=== PATIENT | female | born 1955 | race Caucasian/White ===

== ENCOUNTER 2021-07-04 06:43 | Inpatient (IN) | payer OTHER, MEDICAID ==
[2021-07-02 12:20] LABS: CLARITY,URINE SLIGHTLY CLOUDY (Clear); COLOR,URINE YELLOW (Yellow); GLUCOSE, URINE NEGATIVE (Neg); KETONES,URINE NEGATIVE (Neg); LEUKOCYTE ESTERASE ,URINE NEGATIVE (Neg); NITRITES, URINE NEGATIVE (Neg); OCCULT BLOOD,URINE NEGATIVE (Neg); PROTEIN,URINE NEGATIVE (Neg); UROBILINOGEN,URINE 0.2 E.U/dL (0.2-1.0)
[2021-07-02 12:25] LABS: UA COLLECTION TYPE CLN CATCH MIDSTREAM
[2021-07-02 12:26] LABS: MUCUS STRANDS MANY /LPF (Neg); SQUAMOUS EPITHELIAL CELL,UR FEW /LPF (FEW); TRANSITIONAL EPI CELLS,URINE FEW /HPF
[2021-07-02 12:27] LABS: BACTERIA,URINE NONE SEEN /HPF (Neg); WBC,URINE 0-4 /HPF (0-4)
[2021-07-02 12:28] LABS: BASOPHILS % (AUTO) 0.4 % (0-1); EOSINOPHILS % (AUTO) 0.3 % (0-6); LYMPHOCYTES # (AUTO) 0.8 X10'3 (1.1-4.8); LYMPHOCYTES % (AUTO) 9.1 % (21-51); MEAN CORPUSCULAR HEMOGLOBIN 29.3 PG (27.0-31.0); MEAN CORPUSCULAR HGB CONC 33.4 g/dL (33.0-36.5); MEAN CORPUSCULAR VOLUME 87.7 FL (78-98); MEAN PLATELET VOLUME 8.1 FL (7.4-10.4); MONOCYTES # (AUTO) 0.5 X10'3 (0-0.9); MONOCYTES % (AUTO) 6.2 % (2-12); NEUTROPHILS # (AUTO) 7.1 X10'3 (1.8-7.7); PRE OP HEMATOCRIT 38.3 % (35.0-45.0); PRE OP HEMOGLOBIN 12.8 g/dL (12.0-16.0); PRE OP PLATELET COUNT 335 X10'3 (140-440); RED BLOOD COUNT 4.37 X10'6 (4.20-5.60); RED CELL DISTRIBUTION WIDTH 13.3 % (11.5-14.5)
[2021-07-02 12:35] LABS: PRE OP INR 1.1 INR; PRE OP PROTIME 11.1 SECONDS (9.0-12.0)
[2021-07-02 12:36] LABS: ALBUMIN 3.6 G/DL (3.4-5.0); ALBUMIN/GLOBULIN RATIO 0.8 (1.1-1.5); ALKALINE PHOSPHATASE 114 IU/L (46-116); BLOOD UREA NITROGEN 2 MG/DL (7-18); BUN/CREATININE RATIO 3.6 (6.6-38.0); CALCIUM 9.6 MG/DL (8.5-10.1); CHLORIDE 104 MMOL/L (99-107); CREATININE 0.55 MG/DL (0.40-0.90); PRE OP ALT 18 U/L (30-65); PRE OP ANION GAP 7 (8-16); PRE OP AST 15 U/L (10-37); PRE OP BILIRUB, TOTAL 0.3 MG/DL (0.0-1.0); PRE OP GLUCOSE 117 MG/DL (70-104); PRE OP POTASSIUM 3.9 MMOL/L (3.4-5.1); PRE OP SODIUM 140 MMOL/L (135-145); TOTAL CARBON DIOXIDE 28.6 MMOL/L (24-32); eGFR > 90 ML/MIN
[2021-07-03 10:17] LABS: ABG BASE EXCESS 1.1 mmol/L (-2.0-2.0); ABG HCO3 24.1 mmol/L (22.0-26.0); ABG OXYGEN SATURATION 97.1 % (94-97); ABG PO2 (T) 86.3 mmHg (75.0-100.0); ALLEN'S TEST POSITIVE; FCOHb 5.3 % (0.0-3.9); FMetHb 0.3 % (0.0-1.5); FO2Hb 91.7 % (94-97); TOTAL HEMOGLOBIN 12.4 G/dl (12.0-16.0)
[~2021-07-04] VITALS: Ht 157.5 cm; Wt 52.6 kg
[2021-07-04] VITALS (18 sets, daily range): BP systolic 109–134; BP diastolic 54–74
[~2021-07-04 06:43] MED LIST: BUDE10.2 INH; GABA300C PO; PANT20TA18 PO; SIMV-42 PO; albuterol 2.5 MG/3 ML nebule NEB ONE; cefazolin/dext.iso 2gm/50ml IV ONE; famotidine 20mg tablet PO ONE; ringers solution, lacted 1,000 ML IV SCH
[2021-07-04] MEDS ORDERED: proCHLORperazine 10 MG/2 ml inj IV PRN (07:35)
[2021-07-04] MEDS ORDERED: morphine 4 MG/ML inj SYRINge IV PRN ×2 (07:35→14:40)
[2021-07-04] MEDS ORDERED: morphine 2 MG/ML inj. syringe IV PRN (07:35)
[2021-07-04] MEDS ORDERED: ringers solution, lacted 1,000 ML IV SCH (07:35)
[2021-07-04] MEDS ORDERED: meperidine/PF 25mg/ml syringe IV PRN ×2 (07:35)
[2021-07-04] MEDS ORDERED: ondansetron/PF 4mg/2ml inj IV PRN ×2 (07:35→14:40)
[2021-07-04 08:24] LABS: CLARITY,URINE CLEAR (Clear); GLUCOSE, URINE NEGATIVE (Neg); KETONES,URINE NEGATIVE (Neg); LEUKOCYTE ESTERASE ,URINE NEGATIVE (Neg); NITRITES, URINE NEGATIVE (Neg); OCCULT BLOOD,URINE TRACE-INTACT (Neg); PH,URINE 7.5 (4.8-8.0); PROTEIN,URINE NEGATIVE (Neg); UROBILINOGEN,URINE 0.2 E.U/dL (0.2-1.0)
[2021-07-04 08:26] LABS: COLOR,URINE STRAW (Yellow); UA COLLECTION TYPE CLN CATCH MIDSTREAM
[2021-07-04 08:27] LABS: BACTERIA,URINE FEW /HPF (Neg); RBC,URINE 0-2 /HPF (0-2); SQUAMOUS EPITHELIAL CELL,UR FEW /LPF (FEW); WBC,URINE 0-4 /HPF (0-4)
[2021-07-04] MEDS ORDERED: LIDOcaine 1% (10mg/ml) 2ml vial ONE (09:33)
[2021-07-04] MEDS ORDERED: neostigmine methylsulfate 1 MG/ML 10ml vial ONE (10:05)
[2021-07-04] MEDS ORDERED: sevoflurane 250ml liquid IH ONE (10:05)
[2021-07-04] MEDS ORDERED: glycopyrrolate 0.2mg/ml inj ONE (10:05)
[2021-07-04] MEDS ORDERED: MIDAZolam 1 MG/ML 5ML VIAL ONE (10:18)
[2021-07-04] MEDS ORDERED: fentaNYL /PF 50mcg/ml 5ml ampule ONE (10:18)
[2021-07-04] MEDS ORDERED: BUPIVAcaine/PF 2.5 mg/ml (0.25%) 30ml vial ONE (10:56)
[2021-07-04] MEDS ORDERED: CISatracurium **Bolus** 2 mg/ml inj IV ONE (10:57)
[2021-07-04] MEDS ORDERED: propofol inj 20 ML IV ONE (11:10)
[2021-07-04] MEDS ORDERED: rocuronium 10mg/ml inj IV ONE (11:10)
[2021-07-04] MEDS ORDERED: LIDOcaine 2% (20mg/ml) 5ml vial ONE (11:12)
[2021-07-04] MEDS ORDERED: ondansetron/PF 4mg/2ml inj ONE (13:03)
[2021-07-04] MEDS ORDERED: dexamethasone sod phosphate 4mg/ml inj. ONE (13:03)
[2021-07-04] MEDS ORDERED: fentaNYL/PF 50MCG/1 ML 2ML syringe ONE (13:40)
--- NOTE | 2021-07-04 14:08 | NUR ---
Received from OR via , accompanied by Anesthesiologist DR YEPEZ and report given by Anesthesiolgist. PT PRESENTS WITH 20G LEFT HAND, ART LINE RIGHT WRIST, TINSLEY CATHETER, CHST TUBE, VSS. Addendum: 07/04/21 at 1445 by Cindy Martin RN, RN Amended: Links added.
[2021-07-04] MEDS: meperidine/PF 25mg/ml syringe IV PRN ×2 (14:31→14:50)
[2021-07-04 14:32] LABS: ABG BASE EXCESS -2.7 mmol/L (-2.0-2.0); ABG HCO3 21.3 mmol/L (22.0-26.0); ABG OXYGEN SATURATION 99.1 % (94-97); ABG PCO2 (T) 34.2 mmHg (32.0-45.0); ABG PO2 (T) 277.9 mmHg (75.0-100.0); FCOHb 0.1 % (0.0-3.9); FMetHb 0.1 % (0.0-1.5); FO2Hb 98.9 % (94-97); TOTAL HEMOGLOBIN 9.8 G/dl (12.0-16.0)
[2021-07-04] MEDS ORDERED: CADD PCA waste documentation MC PRN (14:40)
[2021-07-04] MEDS ORDERED: HYDROcodone/acetaminophen 10/325mg tab PO PRN (14:40)
[2021-07-04] MEDS ORDERED: naloxone 0.4 mg/ml inj IV PRN (14:40)
[2021-07-04] MEDS ORDERED: metoclopramide 5 mg/ml inj IV PRN (14:40)
[2021-07-04] MEDS ORDERED: albuterol 2.5 MG/3 ML nebule NEB PRN (14:40)
[2021-07-04] MEDS ORDERED: NORMAL SALINE IV PRN (15:00)
[2021-07-04] MEDS ORDERED: NALOXONE IV PRN (15:00)
[2021-07-04 15:06] LABS: BASOPHILS % (AUTO) 0.3 % (0-1); EOSINOPHILS % (AUTO) 0.1 % (0-6); HEMATOCRIT 26.6 % (35.0-45.0); HEMOGLOBIN 8.8 g/dl (12.0-16.0); LYMPHOCYTES # (AUTO) 0.5 X10'3 (1.1-4.8); LYMPHOCYTES % (AUTO) 3.7 % (21-51); MEAN CORPUSCULAR HEMOGLOBIN 28.7 PG (27.0-31.0); MEAN CORPUSCULAR HGB CONC 33.1 g/dL (33.0-36.5); MEAN CORPUSCULAR VOLUME 86.7 FL (78-98); MEAN PLATELET VOLUME 8.1 FL (7.4-10.4); MONOCYTES # (AUTO) 0.8 X10'3 (0-0.9); MONOCYTES % (AUTO) 6.1 % (2-12); NEUTROPHILS # (AUTO) 11.8 X10'3 (1.8-7.7); NEUTROPHILS % (AUTO) 89.8 % (42-75); PLATELET COUNT 252 X10'3 (140-440); RED BLOOD COUNT 3.07 X10'6 (4.20-5.60); RED CELL DISTRIBUTION WIDTH 12.9 % (11.5-14.5); WHITE BLOOD COUNT 13.1 X10'3 (4.5-11.0)
[2021-07-04] MEDS ORDERED: MORPHINE EPI ONE ×2 (15:15)
[2021-07-04] MEDS ORDERED: BUPIVACAINE EPI ONE ×2 (15:15)
[2021-07-04] MEDS ORDERED: [UNRECOGNIZED DRUG - OTHER] EPI ONE (15:15)
[2021-07-04] MEDS ORDERED: [UNRECOGNIZED DRUG - OTHER] EPI ONE (15:15)
[2021-07-04 15:38] LABS: ALANINE AMINOTRANSFERASE 15 U/L (12-78); ALBUMIN 2.9 G/DL (3.4-5.0); ALBUMIN/GLOBULIN RATIO 1.2 (1.1-1.5); ALKALINE PHOSPHATASE 66 IU/L (46-116); ANION GAP 8 (8-16); ASPARTATE AMINO TRANSFERASE 17 U/L (10-37); BILIRUBIN,TOTAL 0.3 MG/DL (0.1-1.0); BLOOD UREA NITROGEN 5 MG/DL (7-18); BUN/CREATININE RATIO 11.6 (6.6-38.0); CALCIUM 8.3 MG/DL (8.5-10.1); CHLORIDE 108 MMOL/L (99-107); CREATININE 0.43 MG/DL (0.40-0.90); GLUCOSE 124 MG/DL (70-104); POTASSIUM 3.6 MMOL/L (3.5-5.1); SODIUM 140 MMOL/L (135-145); TOTAL CARBON DIOXIDE 24.4 MMOL/L (24-32); TOTAL PROTEIN 5.4 G/DL (6.4-8.2); eGFR > 90 ML/MIN
--- NOTE | 2021-07-04 15:48 | NUR ---
Report called to receiving nurse VENTURA LAINEZ. Transferred via [facility]OSPITAL BED WITH MONITOR, 2 PT BAGS TO ROOM 2010. Belongings Special Issues communicated to receiving nurse. Addendum: 07/04/21 at 1613 by Cindy Martin RN, RN Amended: Links added.
[2021-07-04] MEDS: acetaminophen 1,000mg/100ml IV 100 ML IV SCH ×2 (16:04→16:08)
[2021-07-04] MEDS ORDERED: acetaminophen 1,000mg/100ml IV 100 ML IV ONE (16:10)
--- NOTE | 2021-07-04 18:23 | NUR ---
Problems reprioritized. Patient report given, questions answered & plan of care reviewed with IVÁN LAINEZ.
[2021-07-04] MEDS: ceFAZolin inj. 1,000 MG in dextrose 5%-water 50ml 50 ML IV SCH (18:35)
[2021-07-04] MEDS: potassium Cl 20mEq in D5-NS 1,000 ML IV SCH (18:35)
--- NOTE | 2021-07-04 18:45 | NUR ---
pt check with charge nurse Rachell,, coccyx and bottom in great condition. Incision line with mild swelling laterally, and minimal crepitus. 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 Pt is able to move both legs and feet and denies any sensation deficit. Pt was able to talk to her daughter on the phone.
[2021-07-05] VITALS (24 sets, daily range): BP systolic 83–139; BP diastolic 42–74
[2021-07-05] MEDS: gabapentin 300mg capsule PO SCH ×3 (00:37→19:18)
[2021-07-05] MEDS: docusate sod 100mg capsule PO SCH ×3 (00:37→19:18)
[2021-07-05] MEDS: ceFAZolin inj. 1,000 MG in dextrose 5%-water 50ml 50 ML IV SCH (00:40)
[2021-07-05] MEDS: acetaminophen 1,000mg/100ml IV 100 ML IV SCH ×6 (02:00→14:00)
[2021-07-05 02:58] LABS: BASOPHILS % (AUTO) 0.2 % (0-1); EOSINOPHILS % (AUTO) 0 % (0-6); HEMATOCRIT 27.9 % (35.0-45.0); HEMOGLOBIN 9.4 g/dl (12.0-16.0); LYMPHOCYTES # (AUTO) 0.6 X10'3 (1.1-4.8); LYMPHOCYTES % (AUTO) 5.2 % (21-51); MEAN CORPUSCULAR HEMOGLOBIN 29.3 PG (27.0-31.0); MEAN CORPUSCULAR HGB CONC 33.9 g/dL (33.0-36.5); MEAN CORPUSCULAR VOLUME 86.6 FL (78-98); MONOCYTES # (AUTO) 1.1 X10'3 (0-0.9); MONOCYTES % (AUTO) 9.5 % (2-12); NEUTROPHILS # (AUTO) 9.9 X10'3 (1.8-7.7); NEUTROPHILS % (AUTO) 85.1 % (42-75); PLATELET COUNT 263 X10'3 (140-440); RED BLOOD COUNT 3.22 X10'6 (4.20-5.60); WHITE BLOOD COUNT 11.7 X10'3 (4.5-11.0)
[2021-07-05 03:20] LABS: ALANINE AMINOTRANSFERASE 18 U/L (12-78); ALBUMIN 2.9 G/DL (3.4-5.0); ALKALINE PHOSPHATASE 67 IU/L (46-116); ANION GAP 8 (8-16); ASPARTATE AMINO TRANSFERASE 21 U/L (10-37); BILIRUBIN,TOTAL 0.3 MG/DL (0.1-1.0); BLOOD UREA NITROGEN 2 MG/DL (7-18); BUN/CREATININE RATIO 4.1 (6.6-38.0); CALCIUM 8.4 MG/DL (8.5-10.1); CHLORIDE 105 MMOL/L (99-107); CREATININE 0.49 MG/DL (0.40-0.90); GLUCOSE 138 MG/DL (70-104); MAGNESIUM 1.5 MG/DL (1.5-2.4); POTASSIUM 4.1 MMOL/L (3.5-5.1); SODIUM 137 MMOL/L (135-145); TOTAL CARBON DIOXIDE 24.2 MMOL/L (24-32); TOTAL PROTEIN 5.8 G/DL (6.4-8.2); eGFR > 90 ML/MIN
[2021-07-05] MEDS ORDERED: BUPIVACAINE EPI ONE (04:30)
[2021-07-05] MEDS ORDERED: MORPHINE EPI ONE (04:30)
[2021-07-05] MEDS ORDERED: [UNRECOGNIZED DRUG - OTHER] EPI ONE (04:30)
[2021-07-05] MEDS: potassium Cl 20mEq in D5-NS 1,000 ML IV SCH (07:31)
[2021-07-05] MEDS ORDERED: albumin (Human) 5% 250ml 250 ML IV ONE (11:05)
[2021-07-05] MEDS ORDERED: morphine 2 MG/ML inj. syringe IV PRN (13:45)
[2021-07-05] MEDS ORDERED: ondansetron/PF 4mg/2ml inj IV PRN (13:45)
[2021-07-05] MEDS ORDERED: proCHLORperazine 10 MG/2 ml inj IV PRN (13:45)
[2021-07-05] MEDS ORDERED: meperidine/PF 25mg/ml syringe IV PRN ×2 (13:45)
[2021-07-05] MEDS ORDERED: morphine 4 MG/ML inj SYRINge IV PRN (13:45)
[2021-07-05] MEDS: morphine 2 MG/ML inj. syringe IV PRN (19:16)
[2021-07-05] MEDS ORDERED: BUPIVACAINE EPI SCH (21:00)
[2021-07-05] MEDS ORDERED: MORPHINE EPI SCH (21:00)
[2021-07-05] MEDS ORDERED: [UNRECOGNIZED DRUG - OTHER] EPI SCH (21:00)
[2021-07-06] VITALS (24 sets, daily range): BP systolic 97–135; BP diastolic 39–73
[2021-07-06] MEDS: potassium Cl 20mEq in D5-NS 1,000 ML IV SCH (00:52)
[2021-07-06 03:36] LABS: BASOPHILS % (AUTO) 0.4 % (0-1); EOSINOPHILS # (AUTO) 0.2 X10'3 (0-0.9); EOSINOPHILS % (AUTO) 2.4 % (0-6); HEMATOCRIT 28.2 % (35.0-45.0); HEMOGLOBIN 9.6 g/dl (12.0-16.0); LYMPHOCYTES # (AUTO) 0.7 X10'3 (1.1-4.8); LYMPHOCYTES % (AUTO) 6.8 % (21-51); MEAN CORPUSCULAR HEMOGLOBIN 29.8 PG (27.0-31.0); MEAN CORPUSCULAR VOLUME 87.8 FL (78-98); MEAN PLATELET VOLUME 8.2 FL (7.4-10.4); MONOCYTES # (AUTO) 1.1 X10'3 (0-0.9); MONOCYTES % (AUTO) 10.6 % (2-12); NEUTROPHILS # (AUTO) 8.2 X10'3 (1.8-7.7); NEUTROPHILS % (AUTO) 79.8 % (42-75); PLATELET COUNT 228 X10'3 (140-440); RED BLOOD COUNT 3.21 X10'6 (4.20-5.60); RED CELL DISTRIBUTION WIDTH 13.5 % (11.5-14.5); WHITE BLOOD COUNT 10.2 X10'3 (4.5-11.0)
[2021-07-06 04:19] LABS: ALANINE AMINOTRANSFERASE 16 U/L (12-78); ALBUMIN 2.8 G/DL (3.4-5.0); ALKALINE PHOSPHATASE 67 IU/L (46-116); ANION GAP 6 (8-16); ASPARTATE AMINO TRANSFERASE 17 U/L (10-37); BILIRUBIN,TOTAL 0.3 MG/DL (0.1-1.0); BLOOD UREA NITROGEN 7 MG/DL (7-18); BUN/CREATININE RATIO 16.3 (6.6-38.0); CALCIUM 8.1 MG/DL (8.5-10.1); CHLORIDE 102 MMOL/L (99-107); CREATININE 0.43 MG/DL (0.40-0.90); GLUCOSE 97 MG/DL (70-104); MAGNESIUM 1.5 MG/DL (1.5-2.4); POTASSIUM 3.6 MMOL/L (3.5-5.1); SODIUM 135 MMOL/L (135-145); TOTAL CARBON DIOXIDE 26.6 MMOL/L (24-32); TOTAL PROTEIN 5.7 G/DL (6.4-8.2); eGFR > 90 ML/MIN
[2021-07-06] MEDS: gabapentin 300mg capsule PO SCH (07:36)
[2021-07-06] MEDS: docusate sod 100mg capsule PO SCH ×2 (07:36→20:13)
[2021-07-06] MEDS ORDERED: acetaminophen 325mg tablet PO PRN (15:15)
[2021-07-06] MEDS: morphine/PF injection 8 MG in normal saline 100ml IV soln 92 ML EPI SCH (16:09)
[2021-07-07] VITALS (24 sets, daily range): BP systolic 89–187; BP diastolic 46–100
[2021-07-07 03:06] LABS: BASOPHILS % (AUTO) 0.3 % (0-1); EOSINOPHILS # (AUTO) 0.4 X10'3 (0-0.9); HEMATOCRIT 28.1 % (35.0-45.0); HEMOGLOBIN 9.5 g/dl (12.0-16.0); LYMPHOCYTES # (AUTO) 0.6 X10'3 (1.1-4.8); LYMPHOCYTES % (AUTO) 5.7 % (21-51); MEAN CORPUSCULAR HEMOGLOBIN 29.3 PG (27.0-31.0); MEAN CORPUSCULAR HGB CONC 33.7 g/dL (33.0-36.5); MEAN CORPUSCULAR VOLUME 87.1 FL (78-98); MEAN PLATELET VOLUME 8.2 FL (7.4-10.4); MONOCYTES # (AUTO) 1.2 X10'3 (0-0.9); MONOCYTES % (AUTO) 11.8 % (2-12); NEUTROPHILS # (AUTO) 7.7 X10'3 (1.8-7.7); NEUTROPHILS % (AUTO) 78.2 % (42-75); PLATELET COUNT 236 X10'3 (140-440); RED BLOOD COUNT 3.22 X10'6 (4.20-5.60); RED CELL DISTRIBUTION WIDTH 13.4 % (11.5-14.5); WHITE BLOOD COUNT 9.9 X10'3 (4.5-11.0)
[2021-07-07] MEDS: potassium Cl 20mEq in D5-NS 1,000 ML IV SCH (03:10)
[2021-07-07 03:13] LABS: ALANINE AMINOTRANSFERASE 16 U/L (12-78); ALBUMIN 2.5 G/DL (3.4-5.0); ALBUMIN/GLOBULIN RATIO 0.8 (1.1-1.5); ALKALINE PHOSPHATASE 66 IU/L (46-116); ANION GAP 8 (8-16); ASPARTATE AMINO TRANSFERASE 18 U/L (10-37); BILIRUBIN,TOTAL 0.5 MG/DL (0.1-1.0); BLOOD UREA NITROGEN 4 MG/DL (7-18); BUN/CREATININE RATIO 11.1 (6.6-38.0); CALCIUM 8.5 MG/DL (8.5-10.1); CHLORIDE 101 MMOL/L (99-107); CREATININE 0.36 MG/DL (0.40-0.90); GLUCOSE 102 MG/DL (70-104); MAGNESIUM 1.7 MG/DL (1.5-2.4); POTASSIUM 3.2 MMOL/L (3.5-5.1); SODIUM 137 MMOL/L (135-145); TOTAL CARBON DIOXIDE 28.1 MMOL/L (24-32); TOTAL PROTEIN 5.5 G/DL (6.4-8.2); eGFR > 90 ML/MIN
[2021-07-07] MEDS: docusate sod 100mg capsule PO SCH ×2 (07:22→20:20)
[2021-07-07] MEDS: morphine/PF injection 8 MG in normal saline 100ml IV soln 92 ML EPI SCH (08:25)
--- NOTE | 2021-07-07 09:55 | NUR ---
Pt. ambulating with Physical Therapy.
[2021-07-07] MEDS: morphine 2 MG/ML inj. syringe IV PRN (11:27)
--- NOTE | 2021-07-07 14:13 | NUR ---
Dr. Roberts. (anethesisa) here. Told RN to dc epidural and CVL and insert PIV. Attempts X 2 to insert PIV unsuccesful. Epidrual dc'd with intact cath tip. Band aid applied.
--- NOTE | 2021-07-07 14:39 | NUR ---
Dr. Plaza in to see pt. Stated he will see pt. tomorrow and re-evaluate CT output.
--- NOTE | 2021-07-07 14:47 | NUR ---
Dr. Plaza notified of K+3.2. Stated he would place orders.
[2021-07-07] MEDS: potassium Cl 20 mEq SR tablet PO SCH ×2 (15:42→17:35)
[2021-07-07] MEDS: HYDROcodone/acetaminophen 10/325mg tab PO PRN ×3 (16:17→23:39)
--- NOTE | 2021-07-07 18:15 | NUR ---
Patient in room CICU 2009. I have received report from Vashti LAINEZ and had the opportunity to ask questions and assume patient care.
[2021-07-08] VITALS (19 sets, daily range): BP systolic 89–116; BP diastolic 44–66
[2021-07-08] MEDS: HYDROcodone/acetaminophen 10/325mg tab PO PRN ×4 (05:00→16:01)
[2021-07-08 05:36] LABS: BASOPHILS % (AUTO) 0.4 % (0-1); EOSINOPHILS # (AUTO) 0.5 X10'3 (0-0.9); EOSINOPHILS % (AUTO) 6.6 % (0-6); HEMATOCRIT 27.8 % (35.0-45.0); HEMOGLOBIN 9.3 g/dl (12.0-16.0); LYMPHOCYTES # (AUTO) 0.6 X10'3 (1.1-4.8); LYMPHOCYTES % (AUTO) 7.5 % (21-51); MEAN CORPUSCULAR HEMOGLOBIN 29.1 PG (27.0-31.0); MEAN CORPUSCULAR HGB CONC 33.6 g/dL (33.0-36.5); MEAN CORPUSCULAR VOLUME 86.6 FL (78-98); MEAN PLATELET VOLUME 8.2 FL (7.4-10.4); MONOCYTES # (AUTO) 0.8 X10'3 (0-0.9); MONOCYTES % (AUTO) 10.2 % (2-12); NEUTROPHILS # (AUTO) 6.1 X10'3 (1.8-7.7); NEUTROPHILS % (AUTO) 75.3 % (42-75); PLATELET COUNT 262 X10'3 (140-440); RED BLOOD COUNT 3.21 X10'6 (4.20-5.60); RED CELL DISTRIBUTION WIDTH 13.5 % (11.5-14.5); WHITE BLOOD COUNT 8.1 X10'3 (4.5-11.0)
[2021-07-08 05:50] LABS: ALANINE AMINOTRANSFERASE 19 U/L (12-78); ALBUMIN 2.4 G/DL (3.4-5.0); ALBUMIN/GLOBULIN RATIO 0.7 (1.1-1.5); ALKALINE PHOSPHATASE 82 IU/L (46-116); ANION GAP 6 (8-16); ASPARTATE AMINO TRANSFERASE 7 U/L (10-37); BILIRUBIN,TOTAL 0.5 MG/DL (0.1-1.0); BLOOD UREA NITROGEN 3 MG/DL (7-18); BUN/CREATININE RATIO 7.5 (6.6-38.0); CALCIUM 8.7 MG/DL (8.5-10.1); CHLORIDE 105 MMOL/L (99-107); GLUCOSE 82 MG/DL (70-104); MAGNESIUM 1.9 MG/DL (1.5-2.4); SODIUM 141 MMOL/L (135-145); TOTAL CARBON DIOXIDE 29.7 MMOL/L (24-32); TOTAL PROTEIN 5.9 G/DL (6.4-8.2); eGFR > 90 ML/MIN
--- NOTE | 2021-07-08 06:27 | NUR ---
Problems reprioritized. Patient report given, questions answered & plan of care reviewed with Aaron LAINEZ. Addendum: 07/08/21 at 0628 by Jesus Alexander RN Correction: report given to Jose Luis LAINEZ, not Aaron LAINEZ.
[2021-07-08] MEDS: potassium Cl 20 mEq SR tablet PO SCH ×2 (08:31→17:34)
[2021-07-08] MEDS: docusate sod 100mg capsule PO SCH (08:32)
--- NOTE | 2021-07-08 11:57 | NUR ---
Initial: Pt admit s/p R thoracotomy, pneumolysis and wedge resection w/ excision of pleural mass per MD notes. Pt PO fluctuates ~60% avg regular diet meeting estimated kcal needs and 95% protein needs at this time. No BM yet this admit receiving routine colace post-op. Will continue to monitor for PO trends and further nutrition intervention needs. Rec: 1. continue regular diet 2. monitor PO trends for additional protein needs 3. routine bowel care 4. weekly wts Addendum: 07/08/21 at [address] Amended: Links added.
[2021-07-08] MEDS ORDERED: HYDR-3972 PO (17:39)
--- NOTE | 2021-07-08 18:15 | NUR ---
Patient in room CICU 2009. I have received report from Jose Luis LAINEZ and had the opportunity to ask questions and assume patient care.
--- NOTE | 2021-07-08 19:25 | NUR ---
Patient discharged via wheelchair accompanied by RN with all belongings.
== END 2021-07-08 19:39 | disposition home or self-care (01) | DRG 828 ==
LOC: PAS IN 06:43 → CICU 2S 16:12
PROVIDERS: ADMIT Surgery; ATTEND Surgery
PROC: 0BBD0ZZ Excision of Right Middle Lung Lobe, Open Approach (ICD-10-PCS; 2021-07-04)
PROC: 0BBN0ZX Excision of Right Pleura, Open Approach, Diagnostic (ICD-10-PCS; 2021-07-04)
PROC: 0W9900Z Drainage of Right Pleural Cavity with Drainage Device, Open Approach (ICD-10-PCS; 2021-07-04)
PROC: 0BNK0ZZ Release Right Lung, Open Approach (ICD-10-PCS; principal; 2021-07-04 10:05)
DX: C80.1 Malignant (primary) neoplasm, unspecified (principal); J94.1 Fibrothorax; Z79.51 Long term (current) use of inhaled steroids; Z92.3 Personal history of irradiation
CPT/HCPCS: Z7506; Z7508; 36415; 36600; 71045; 71046; 80053; 81001; 82803; 82948; 83735; 85018; 85025; 85610; 85730; 86885; 86900; 86901; 86920; 87081; 93005; 94060; 94727; 94729; 94760; 97116; 97161; 97530; A4215; A4618; A6258; A6449; A7000; A7048; C1751; C1758; C1781; G0378; J0131; J0690; J1100; J2175; J2250; J2270; J2274; J2405; J2704; J2710; J3010; J3480; J3490; J7040; J7060; J7120; P9045; S0020; U0003; U0005

== ENCOUNTER 2023-10-27 15:30 | Day surgery (SDC) | payer MEDICARE, OTHER ==
[~2023-10-27] VITALS: Ht 157.5 cm; Wt 44.5 kg
[2023-10-27] VITALS (9 sets, daily range): BP systolic 106–134; BP diastolic 62–78; PULSE 70–102; RESP 12–18; O2SAT 95–98
[~2023-10-27 15:30] MED LIST changes: +HYDR-3972 PO; +NICO-687 TD; +QUET25TA PO; -albuterol 2.5 MG/3 ML nebule NEB ONE; -cefazolin/dext.iso 2gm/50ml IV ONE; -famotidine 20mg tablet PO ONE; -ringers solution, lacted 1,000 ML IV SCH
[2023-10-27] MEDS ORDERED: ALEN10TA27 PO (15:54)
[2023-10-27] MEDS ORDERED: LEVO100C4 PO (15:54)
[2023-10-27] MEDS ORDERED: PANT-47 PO (15:55)
[2023-10-27] MEDS ORDERED: GABA-535 PO (15:56)
[2023-10-27] MEDS ORDERED: UMEC1DIS INH (15:57)
[2023-10-27] MEDS ORDERED: FLO0.4C PO (15:57)
[2023-10-27] MEDS ORDERED: CALC-854 PO (15:58)
[2023-10-27] MEDS ORDERED: MULT120T (15:59)
[2023-10-27] MEDS ORDERED: KETO15CR2 TOP (15:59)
[2023-10-27] MEDS ORDERED: LIPA1CAP ×2 (16:00→16:01)
[2023-10-27] MEDS ORDERED: OXYC5CAP19 PO (16:02)
[2023-10-27] MEDS ORDERED: iohexol 300mg/ml 100ml inj. ONE (16:03)
[2023-10-27] MEDS ORDERED: LIDOcaine 2% Viscous 15ml cup ONE (16:03)
[2023-10-27] MEDS ORDERED: PEMB100V (16:03)
[2023-10-27] MEDS ORDERED: fentaNYL/PF 50MCG/1 ML 2ML syringe ONE (16:40)
[2023-10-27] MEDS ORDERED: glucagon, human recombinant 1mg kit ONE ×2 (16:40)
[2023-10-27] MEDS ORDERED: levoFLOXACIN-Levaquin 500mg/D5 100 ML IV ONE (16:41)
[2023-10-27] MEDS ORDERED: diphenhydrAMINE 50 mg/ml inj ONE (16:41)
[2023-10-27] MEDS ORDERED: MIDAZolam 1 MG/ML 5ML VIAL ONE (16:41)
== END 2023-10-27 18:35 | disposition home or self-care (01) ==
LOC: GI LAB 15:30
PROVIDERS: ATTEND Internal Medicine Gastroenterology
DX: C25.1 Malignant neoplasm of body of pancreas (principal); K83.1 Obstruction of bile duct
CPT/HCPCS: 43276; 99152; 99153; C2625; J1200; J1956; J2250; J3010; J7030; Q9967; Z7512; Z7610; A4620; C1769; C1889; J1610